=== PATIENT | female | born 1995 | race Caucasian/White ===

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

== ENCOUNTER 2022-12-10 10:40 | Emergency (ER) | payer OTHER ==
[~2022-12-10] VITALS: Ht 167.6 cm; Wt 61.7 kg
[2022-12-10 10:49] VITALS: BP 135/85; PULSE 80; RESP 20; TEMP 98; O2SAT 99
[2022-12-10] MEDS ORDERED: IBUPROFEN 600 MG TAB PO ONE (12:20)
[2022-12-10] MEDS ORDERED: IBUP-1842 PO (12:41)
[2022-12-10 13:00] VITALS: BP 132/80; PULSE 79; RESP 20; TEMP 98.1; O2SAT 99
== END 2022-12-10 13:00 | disposition home or self-care (01) ==
LOC: MED 10:40
DX: S90.112A Contusion of left great toe without damage to nail, initial encounter (principal); X58.XXXA Exposure to other specified factors, initial encounter; Y93.89 Activity, other specified; Y92.89 Other specified places as the place of occurrence of the external cause; Y99.8 Other external cause status
CPT/HCPCS: 73630; 99283

== ENCOUNTER 2023-06-14 01:55 | Emergency (ER) | payer OTHER ==
[~2023-06-14] VITALS: Ht 165.1 cm; Wt 60.8 kg
[~2023-06-14 01:55] MED LIST: IBUP-1842 PO
[2023-06-14 02:00] VITALS: BP 145/76; PULSE 83; RESP 18; TEMP 97.8; O2SAT 98
[2023-06-14 02:12] VITALS: O2SAT 99
[2023-06-14] MEDS: LORazepam 2 MG/ML VIAL IM ONE (02:32)
== END 2023-06-14 03:10 | disposition home or self-care (01) ==
LOC: MED 01:55
DX: F41.9 Anxiety disorder, unspecified (principal); Z79.1 Long term (current) use of non-steroidal anti-inflammatories (NSAID); Z91.018 Allergy to other foods
CPT/HCPCS: 96372; 99283; J2060

== ENCOUNTER 2023-06-17 10:47 | Emergency (ER) | payer OTHER ==
[~2023-06-17] VITALS: Ht 165.1 cm; Wt 61.2 kg
[2023-06-17 10:59] VITALS: BP 119/71; PULSE 131; RESP 20; TEMP 98.1; O2SAT 100
[2023-06-17] MEDS: diazePAM 5 MG TAB PO ONE (12:00)
[2023-06-17] MEDS: ONDANSETRON 4 MG ODT PO ONE (12:59)
[2023-06-17] MEDS ORDERED: METH-1867 PO (13:33)
[2023-06-17 13:41] VITALS: BP 120/73; PULSE 91; RESP 16; O2SAT 99
== END 2023-06-17 13:40 | disposition home or self-care (01) ==
LOC: MED 10:47
DX: F41.9 Anxiety disorder, unspecified (principal); M62.838 Other muscle spasm; Z79.899 Other long term (current) drug therapy; Z91.018 Allergy to other foods
CPT/HCPCS: 93005; 99283; Q0162

== ENCOUNTER 2023-09-14 22:38 | Emergency (ER) | payer OTHER ==
[~2023-09-14] VITALS: Ht 167.6 cm; Wt 67.1 kg
[~2023-09-14 22:38] MED LIST changes: +METH-1867 PO
[2023-09-14 22:50] VITALS: BP 126/78; PULSE 85; RESP 16; TEMP 97.4
[2023-09-14 23:21] VITALS: O2SAT 98
[2023-09-15] MEDS: KETOROLAC 30 MG/ML VIAL IM ONE (01:25)
[2023-09-15] MEDS: METOCLOPRAMIDE 10 MG/2 ML INJ VIAL IM ONE (01:25)
[2023-09-15] MEDS: ACETAMINOPHEN EXTRA STRENGTH 500 MG TAB PO ONE (01:26)
[2023-09-15 01:45] VITALS: O2SAT 98
[2023-09-15 02:31] VITALS: BP 122/77; PULSE 87; RESP 16; TEMP 97.4; O2SAT 98
== END 2023-09-15 02:32 | disposition home or self-care (01) ==
LOC: MED 22:38
DX: R51.9 Headache, unspecified (principal); R53.1 Weakness; H53.149 Visual discomfort, unspecified; G89.29 Other chronic pain; Z79.899 Other long term (current) drug therapy; Z91.018 Allergy to other foods
CPT/HCPCS: 96372; 99284; J1885; J2765

== ENCOUNTER 2023-12-21 16:04 | Emergency (ER) | payer OTHER ==
[~2023-12-21] VITALS: Ht 167.6 cm; Wt 76.2 kg
[2023-12-21 16:10] VITALS: BP 136/88; PULSE 102; RESP 18; TEMP 98.4; O2SAT 100
[2023-12-21 17:33] VITALS: BP 132/86; PULSE 98; RESP 18; TEMP 98.4; O2SAT 100
== END 2023-12-21 17:33 | disposition home or self-care (01) ==
LOC: MED 16:04
DX: S90.32XA Contusion of left foot, initial encounter (principal); F41.9 Anxiety disorder, unspecified; Z98.890 Other specified postprocedural states; Z79.899 Other long term (current) drug therapy; Z91.018 Allergy to other foods; Z88.8 Allergy status to other drugs, medicaments and biological substances; W22.8XXA Striking against or struck by other objects, initial encounter; Y92.89 Other specified places as the place of occurrence of the external cause; Y93.89 Activity, other specified; Y99.8 Other external cause status
CPT/HCPCS: 73630; 99283; Q0092